=== PATIENT | female | born 1990 | race Caucasian/White ===

== ENCOUNTER 2021-01-15 08:03 | Outpatient (CLI) | payer BC ==
[2021-01-16 12:34] LABS: SARS-CoV-2 PCR by NAA Not Detected (NotDetected)
== END 2021-01-15 08:04 | disposition home or self-care (01) ==
LOC: CSHLAB 08:03
PROVIDERS: ATTEND Obstetrics & Gynecology
DX: Z01.812 Encounter for preprocedural laboratory examination (principal); Z20.822 Contact with and (suspected) exposure to COVID-19
CPT/HCPCS: U0003; U0005

== ENCOUNTER 2021-01-18 07:30 | Inpatient (IN) | payer BC ==
[2021-01-19] MEDS ORDERED: Ondansetron PF 4 MG/2 ML Vial IVP PRN ×3 (06:05→11:57)
[2021-01-19] MEDS ORDERED: CEFAZOLIN 2 GM in Premix Bag 1 BAG IVPB SCH ×2 (06:05→07:30)
[2021-01-19] MEDS ORDERED: Lactated Ringer's 1,000 ML IV SCH (06:05)
[2021-01-19] MEDS ORDERED: Famotidine/PF 20 mg/2ml Vial SLOW IVP PRN (06:05)
[2021-01-19] MEDS ORDERED: hydrALAZINE 20 MG/ML VIAL SLOW IVP PRN ×2 (06:05→11:57)
[2021-01-19] MEDS ORDERED: Bicitra 30 ML UDCUP PO PRN (06:05)
[2021-01-19] MEDS ORDERED: Promethazine HCl 25 MG/ML VIAL IM PRN ×2 (06:05→09:39)
[2021-01-19 06:06] VITALS: BMI 34.3
[2021-01-19 06:50] LABS: Hemoglobin 10.8 g/dL (12.0-15.5); Mean Corpuscular HGB CONC 33.4 g/dL (32.0-36.0); Mean Corpuscular Volume 89.7 fl (81.6-98.3); Mean Platelet Volume 11.2 fl (7.4-10.4); Platelet Count 181 10x3/uL (150-450); RBC Distribution Width 16.7 % (11.5-14.5); White Blood Cell (WBC) Count 11.1 10x3/uL (3.5-10.5)
[2021-01-19] MEDS ORDERED: Dexamethasone 4 mg/ml Vial ONE (07:15)
[2021-01-19] MEDS ORDERED: Oxytocin 10 UNITS/ML VIAL ONE (07:15)
[2021-01-19] MEDS ORDERED: Ondansetron PF 4 MG/2 ML Vial ONE (07:15)
[2021-01-19] MEDS ORDERED: Morphine PF 10 MG/10 ML VIAL ONE (07:15)
[2021-01-19] MEDS ORDERED: Phenylephrine 40 MG/NS 250 ML 250 ML ONE (07:16)
[2021-01-19 07:24] LABS: HIV (1/2) Antibody/Antigen Non-Reactive (NonReactive); HIV 1/2 INDEX 0.07 S/CO (<1.00); Hep B Surf Ag Non-Reactive S/CO (NonReactive)
[2021-01-19 07:25] LABS: Syphilis Antibody Nonreactive (Nonreactive); Syphilis Antibody Index 0.06 S/CO (<1.00 Non-Reactive)
[2021-01-19] MEDS ORDERED: ePHEDrine Sulfate 50 MG/10 ML VIAL ONE (07:43)
[2021-01-19] MEDS ORDERED: Naloxone HCl 0.4 mg/ml Vial IVP PRN ×2 (09:39)
[2021-01-19] MEDS ORDERED: Ondansetron HCl/PF 4 MG/2 ML Vial IVP PRN (09:39)
[2021-01-19] MEDS ORDERED: Naloxone HCl 0.4 mg/ml Vial IV PRN (09:39)
[2021-01-19] MEDS ORDERED: Fentanyl 100 MCG/2 ML VIAL SLOW IVP PRN (09:39)
[2021-01-19] MEDS ORDERED: diphenhydrAMINE 50 MG/ML VIAL IVP PRN (09:39)
[2021-01-19] MEDS ORDERED: Hydrocerin (Eucerin) Cream 120 gm Jar TOP PRN (09:39)
[2021-01-19] MEDS ORDERED: Promethazine HCl 25 MG SUPP PR PRN (09:39)
[2021-01-19] MEDS ORDERED: Meperidine HCl/PF 25 MG/ML VIAL SLOW IVP PRN (09:39)
[2021-01-19] MEDS ORDERED: Ketorolac Tromethamine 30 MG/ML VIAL IVP SCH (09:45)
[2021-01-19] MEDS ORDERED: Communication Order-Pharmacy FS SCH (09:45)
[2021-01-19] MEDS ORDERED: NS w/ Oxytocin 30 units 500 ML ONE (10:02)
[2021-01-19] MEDS ORDERED: diphenhydrAMINE 25 MG CAP PO PRN (11:57)
[2021-01-19] MEDS ORDERED: Simethicone Chewable 80 MG TAB PO PRN (11:57)
[2021-01-19] MEDS ORDERED: Lanolin Ointment 7 GM TUBE TOP PRN (11:57)
[2021-01-19] MEDS ORDERED: Misoprostol 200 MCG TAB PR PRN (11:57)
[2021-01-19] MEDS ORDERED: Bisacodyl 10 MG SUPP PR PRN (11:57)
[2021-01-19] MEDS ORDERED: HYDROcodone/Acetaminophen 5/325 mg Tablet PO PRN ×2 (11:57→21:45)
[2021-01-19] MEDS ORDERED: Ferrous Sulfate 325 MG TAB PO SCH (13:00)
[2021-01-19] MEDS ORDERED: Prenatal Vitamin 1 TAB PO SCH (13:00)
[2021-01-19] MEDS ORDERED: Docusate Calcium (SURFAK) 240 MG CAP PO SCH (13:00)
[2021-01-19] MEDS: Docusate Calcium (SURFAK) 240 MG CAP PO SCH (21:01)
[2021-01-19] MEDS: Ketorolac Tromethamine 30 MG/ML VIAL IVP PRN (21:01)
[2021-01-20] MEDS: Ferrous Sulfate 325 MG TAB PO SCH ×3 (01:11→21:08)
[2021-01-20] MEDS: Ketorolac Tromethamine 30 MG/ML VIAL IVP PRN (04:30)
[2021-01-20 04:41] LABS: Hemoglobin 9.6 g/dL (12.0-15.5); Mean Corpuscular HGB CONC 34.3 g/dL (32.0-36.0); Mean Corpuscular Volume 87.5 fl (81.6-98.3); Mean Platelet Volume 11.1 fl (7.4-10.4); Platelet Count 157 10x3/uL (150-450); RBC Distribution Width 16.9 % (11.5-14.5); White Blood Cell (WBC) Count 13.4 10x3/uL (3.5-10.5)
[2021-01-20] MEDS: Prenatal Vitamin 1 TAB PO SCH (08:34)
[2021-01-20] MEDS: Docusate Calcium (SURFAK) 240 MG CAP PO SCH ×2 (08:35→21:08)
[2021-01-20] MEDS ORDERED: Boostrix 0.5 ML (Tdap) VIAL IM ONE (11:57)
[2021-01-20] MEDS: HYDROcodone/Acetaminophen 5/325 mg Tablet PO PRN (12:31)
[2021-01-20] MEDS: Ibuprofen 800 MG TAB PO SCH ×2 (14:00→21:08)
[2021-01-21] MEDS: HYDROcodone/Acetaminophen 5/325 mg Tablet PO PRN ×2 (05:34→11:18)
[2021-01-21] MEDS: Ibuprofen 800 MG TAB PO SCH (05:35)
[2021-01-21] MEDS: Ferrous Sulfate 325 MG TAB PO SCH (08:34)
[2021-01-21] MEDS: Prenatal Vitamin 1 TAB PO SCH (08:34)
[2021-01-21] MEDS: Docusate Calcium (SURFAK) 240 MG CAP PO SCH (08:34)
[2021-01-21 11:03] VITALS: BP 126/80; TEMP 98.3
[2021-01-21] MEDS ORDERED: Boostrix 0.5 ML (Tdap) VIAL IM ONE (11:30)
== END 2021-01-21 13:45 | disposition home or self-care (01) | DRG 788 ==
LOC: CSHLD 01-19 05:28 → CSHPP 01-19 11:35
PROVIDERS: ADMIT Obstetrics & Gynecology; ATTEND Obstetrics & Gynecology
PROC: 10D00Z1 Extraction of Products of Conception, Low, Open Approach (ICD-10-PCS; principal; 2021-01-19)
DX: O34.211 Maternal care for low transverse scar from previous cesarean delivery (principal); Z3A.39 39 weeks gestation of pregnancy; Z37.0 Single live birth; Z20.822 Contact with and (suspected) exposure to COVID-19; O99.62 Diseases of the digestive system complicating childbirth; K66.0 Peritoneal adhesions (postprocedural) (postinfection)
CPT/HCPCS: 36415; 51702; 85027; 86780; 86850; 86900; 86901; 87340; 87389; 90715; J0690; J1100; J1885; J2274; J2405; J2590